=== PATIENT | male | born 1980 | race Caucasian/White ===

== ENCOUNTER → 2016-07-14 21:40 | Emergency (ER) | payer OTHER ==
[~2016-07-14 21:40] MED LIST: HYDROCODON-ACE1 EAC9 PO; NEURONTIN800 MG PO; NO MEDICATIONS; TRAZODONE HCL150 MG PO
== END | disposition left against medical advice (07) ==
LOC: CED 21:40
DX: Z53.21 Procedure and treatment not carried out due to patient leaving prior to being seen by health care provider (principal)